=== PATIENT | male | born 1985 ===

== ENCOUNTER 2019-08-24 15:12 | Emergency (ER) | payer BC, OTHER ==
--- NOTE | 2019-08-24 16:11 | EDM.PDOC ---
ED HPI GENERAL MEDICAL PROBLEM - General Chief Complaint: Neuro Symptoms/Deficits Stated Complaint: CONFUSION Time Seen by Provider: 08/24/19 16:10 - History of Present Illness INITIAL COMMENTS - FREE TEXT/NARRATIVE: 33-year-old male presents the emergency room with these episodes of lightheadedness and just not thinking. This is been going on the last day and a half he is had a couple episodes 1 yesterday one today. He has these episodes where he is having hard time processing his thoughts he feels a little lightheaded the world is not spinning around him during these episodes. It is harder for him to concentrate with these episodes and he is just not right. The patient is trying to lose weight and he works out daily. He was using his as needed Flexeril but has been on this for 4 years and he has not had problems with it in the past. Diet is sporadic at times. - Related Data Allergies Allergy/AdvReac Type Severity Reaction Status Date / Time Seasonal Allergy Itching Uncoded 08/24/19 15:25 Home Meds: Home Meds Cyclobenzaprine [Flexeril] 5 mg PO Q8HR PRN 08/24/19 [History] Diclofenac Sodium [Diclofenac Sodium ER] 200 mg PO DAILY 08/24/19 [History] traMADol [Ultram] 50 mg PO Q6H PRN 08/24/19 [History] Past Medical History HEENT History: Reports: Hard of Hearing Cardiovascular History: Reports: High Cholesterol Respiratory History: Reports: Sleep Apnea Gastrointestinal History: Reports: None Genitourinary History: Reports: None Musculoskeletal History: Reports: Back Pain, Chronic Psychiatric History: Reports: None Endocrine/Metabolic History: Reports: Obesity/BMI 30+ Hematologic History: Reports: None Immunologic History: Reports: None Oncologic (Cancer) History: Reports: None Dermatologic History: Reports: None - Infectious Disease History Infectious Disease History: Reports: None - Past Surgical History Neurological Surgical History: Reports: Discectomy, Other (See Below) Other Neurological Surgeries/Procedures: Steroid shots to lower back where discectomy was done. Musculoskeletal Surgical History: Reports: Arthroscopic Procedure, Other (See Below) Other Musculoskeletal Surgeries/Procedures:: Surgery to Repair Torn Right Achilles Tendon Social & Family History - Tobacco Use Smoking Status *Q: Never Smoker - Caffeine Use Caffeine Use: Reports: Energy Drinks Other Caffeine Use: Preworkout - Recreational Drug Use Recreational Drug Use: No ED ROS GENERAL - Review of Systems Review Of Systems: See Below Constitutional: Reports: No Symptoms HEENT: Reports: No Symptoms Respiratory: Reports: No Symptoms Cardiovascular: Reports: No Symptoms Endocrine: Reports: No Symptoms GI/Abdominal: Reports: No Symptoms : Reports: No Symptoms Musculoskeletal: Reports: Back Pain, Muscle Pain Neurological: Reports: Confusion (Confusion with these episodes), Weakness (He has some weakness during these episodes as well) Psychiatric: Reports: No Symptoms Hematologic/Lymphatic: Reports: No Symptoms ED EXAM, GENERAL - Physical Exam Exam: See Below Exam Limited By: No Limitations General Appearance: Alert, No Apparent Distress, Other (He is not symptomatic at the time of his ER visit) Eye Exam: Bilateral Eye: EOMI, Normal Inspection, PERRL Ears: Normal External Exam, Normal Canal, Hearing Grossly Normal, Normal TMs Nose: Normal Inspection, Normal Mucosa, No Blood Throat/Mouth: Normal Inspection, Normal Lips, Normal Teeth, Normal Gums, Normal Oropharynx, Normal Voice, No Airway Compromise Head: Atraumatic, Normocephalic Neck: Normal Inspection, Supple, Non-Tender, Full Range of Motion. No: Lymphadenopathy (L), Lymphadenopathy (R) Respiratory/Chest: No Respiratory Distress, Lungs Clear, Normal Breath Sounds Cardiovascular: Regular Rate, Rhythm, No Edema, No Murmur GI/Abdominal: Normal Bowel Sounds, Soft, Non-Tender Back Exam: Normal Inspection. No: CVA Tenderness (L), CVA Tenderness (R) Extremities: Normal Inspection, Normal Range of Motion, Non-Tender, No Pedal Edema Neurological: Alert, Oriented, Normal Cognition, Other (Cranial nerves II through XII grossly intact all muscle groups the upper and lower extremities are equal and appropriate bilaterally deep tendon reflexes are equal and appropriate at the brachioradialis and patella tendons bilaterally. Cerebellar testing is entirely within normal limits) Lymphatic: No Adenopathy EKG INTERPRETATION EKG Date: 08/24/19 Rhythm: NSR Gould: Normal P-Wave: Present QRS: Normal ST-T: Normal QT: Normal Comparison: NA - No Prior EKG EKG Interpretation Comments: Normal EKG Course - Vital Signs Last Recorded V/S: Last Vital Signs Temp 36.8 C 08/24/19 15:21 Pulse 102 H 08/24/19 15:21 Resp 16 08/24/19 15:21 BP 166/114 H 08/24/19 15:21 Pulse Ox 98 08/24/19 15:21 - Orders/Labs/Meds Orders: Active Orders 24 hr Category Date Time Status EKG 12 Lead [EKG Documentation Completion] [RC] STAT Care 08/24/19 16:28 Active Labs: Laboratory Tests 08/24/19 08/24/19 08/24/19 Range/Units 16:28 16:28 16:45 WBC 6.90 (4.23-9.07) K/mm3 RBC 5.43 (4.63-6.08) M/mm3 Hgb 15.8 (13.7-17.5) gm/dl Hct 46.5 (40.1-51.0) % MCV 85.6 (79.0-92.2) fl MCH 29.1 (25.7-32.2) pg MCHC 34.0 (32.2-35.5) g/dl RDW Std Deviation 41.5 (35.1-43.9) fL Plt Count 211 (163-337) K/mm3 MPV 9.9 (9.4-12.3) fl Neut % (Auto) 51.3 (34.0-67.9) % Lymph % (Auto) 36.2 (21.8-53.1) % [place] % (Auto) 9.0 (5.3-12.2) % Eos % (Auto) 2.6 (0.8-7.0) Baso % (Auto) 0.6 (0.1-1.2) % Neut # (Auto) 3.54 (1.78-5.38) K/mm3 Lymph # (Auto) 2.50 (1.32-3.57) K/mm3 [place] # (Auto) 0.62 (0.30-0.82) K/mm3 Eos # (Auto) 0.18 (0.04-0.54) K/mm3 Baso # (Auto) 0.04 (0.01-0.08) K/mm3 Sodium (136-145) mEq/L Potassium (3.5-5.1) mEq/L Chloride (98-107) mEq/L Carbon Dioxide (21-32) mEq/L Anion Gap (5-15) BUN (7-18) mg/dL Creatinine (0.7-1.3) mg/dL Est Cr Clr Drug Dosing mL/min Estimated GFR (MDRD) (>60) mL/min BUN/Creatinine Ratio (14-18) Glucose (74-106) mg/dL Calcium (8.5-10.1) mg/dL Total Bilirubin (0.2-1.0) mg/dL AST (15-37) U/L ALT (16-63) U/L Alkaline Phosphatase (46-116) U/L Total Protein (6.4-8.2) g/dl Albumin (3.4-5.0) g/dl Globulin gm/dL Albumin/Globulin Ratio (1-2) TSH 3rd Generation (0.358-3.74) uIU/mL Urine Color Yellow (Yellow) Urine Appearance Cloudy H (Clear) Urine pH 7.5 (5.0-8.0) Ur Specific Dietrich 1.025 (1.005-1.030) Urine Protein Negative (Negative) Urine Glucose (UA) Negative (Negative) Urine Ketones Negative (Negative) Urine Occult Blood Negative (Negative) Urine Nitrite Negative (Negative) Urine Bilirubin Negative (Negative) Urine Urobilinogen 0.2 (0.2-1.0) Ur Leukocyte Esterase Negative (Negative) Urine Opiates Screen Negative (ZRXUHG=178) Ur Buprenorphine Scrn Negative (CUTOFF=10) Ur Oxycodone Screen Negative (NDN8XP=618) Urine Methadone Screen Negative (MIL3QA=546) Ur Propoxyphene Screen Negative (HUKKYS=979) Ur Barbiturates Screen Negative (CTUJWT=130) Ur Tricyclics Screen Negative (IMRCQV=629) Ur Phencyclidine Scrn Negative (CUTOFF=25) Ur Amphetamine Screen Negative (CMJBQX=368) U Methamphetamines Scrn Negative (IMLNPW=693) U Benzodiazepines Scrn Negative (CKRJFY=594) U Cocaine Metab Screen Negative (WONOSD=991) U Marijuana (THC) Screen Negative (CUTOFF=50) Ethyl Alcohol (0.00) gm% 08/24/19 Range/Units 16:45 WBC (4.23-9.07) K/mm3 RBC (4.63-6.08) M/mm3 Hgb (13.7-17.5) gm/dl Hct (40.1-51.0) % MCV (79.0-92.2) fl MCH (25.7-32.2) pg MCHC (32.2-35.5) g/dl RDW Std Deviation (35.1-43.9) fL Plt Count (163-337) K/mm3 MPV (9.4-12.3) fl Neut % (Auto) (34.0-67.9) % Lymph % (Auto) (21.8-53.1) % [place] % (Auto) (5.3-12.2) % Eos % (Auto) (0.8-7.0) Baso % (Auto) (0.1-1.2) % Neut # (Auto) (1.78-5.38) K/mm3 Lymph # (Auto) (1.32-3.57) K/mm3 [place] # (Auto) (0.30-0.82) K/mm3 Eos # (Auto) (0.04-0.54) K/mm3 Baso # (Auto) (0.01-0.08) K/mm3 Sodium 140 (136-145) mEq/L Potassium 4.2 (3.5-5.1) mEq/L Chloride 104 (98-107) mEq/L Carbon Dioxide 26 (21-32) mEq/L Anion Gap 14.2 (5-15) BUN 16 (7-18) mg/dL Creatinine 1.3 (0.7-1.3) mg/dL Est Cr Clr Drug Dosing 93.09 mL/min Estimated GFR (MDRD) > 60 (>60) mL/min BUN/Creatinine Ratio 12.3 L (14-18) Glucose 104 (74-106) mg/dL Calcium 9.2 (8.5-10.1) mg/dL Total Bilirubin 0.4 (0.2-1.0) mg/dL AST 37 (15-37) U/L ALT 62 (16-63) U/L Alkaline Phosphatase 77 (46-116) U/L Total Protein 7.5 (6.4-8.2) g/dl Albumin 4.0 (3.4-5.0) g/dl Globulin 3.5 gm/dL Albumin/Globulin Ratio 1.1 (1-2) TSH 3rd Generation 1.725 (0.358-3.74) uIU/mL Urine Color (Yellow) Urine Appearance (Clear) Urine pH (5.0-8.0) Ur Specific Dietrich (1.005-1.030) Urine Protein (Negative) Urine Glucose (UA) (Negative) Urine Ketones (Negative) Urine Occult Blood (Negative) Urine Nitrite (Negative) Urine Bilirubin (Negative) Urine Urobilinogen (0.2-1.0) Ur Leukocyte Esterase (Negative) Urine Opiates Screen (AZLWAT=278) Ur Buprenorphine Scrn (CUTOFF=10) Ur Oxycodone Screen (RZS1MT=568) Urine Methadone Screen (WND2IF=239) Ur Propoxyphene Screen (DQQHGQ=398) Ur Barbiturates Screen (LEUOLJ=058) Ur Tricyclics Screen (ZWSLNV=266) Ur Phencyclidine Scrn (CUTOFF=25) Ur Amphetamine Screen (ODDUKU=941) U Methamphetamines Scrn (SFOGCJ=515) U Benzodiazepines Scrn (YMAEPC=600) U Cocaine Metab Screen (FBVUCN=494) U Marijuana (THC) Screen (CUTOFF=50) Ethyl Alcohol 0.00 (0.00) gm% - Re-Assessments/Exams Free Text/Narrative Re-Assessment/Exam: 08/24/19 18:12 He has a normal neurologic examination thinking about the etiologies this does not really represent a presyncopal situation however I cannot exclude this I am concerned that he is getting hypoglycemic at times. The Flexeril could be potential culprit but he is tolerated this fairly well over the years and he has not used it in a couple of days and he had an episode yesterday and another 1 again today. At this point I think the most likely explanation is hypoglycemic episodes had a long discussion with the patient of how to avoid these and he will work on this. When discussing this I discovered the patient' s son has Elgwy-Ovdzhzhmf-Rnoma syndrome. We will check a 48-hour Holter on this gentleman. He will follow-up with his primary next week. Departure - Departure Time of Disposition: 18:13 Disposition: Home, Self-Care 01 Clinical Impression: Multiple episodes of hypoglycemia, Episode of transient neurologic symptoms - Discharge Information Instructions: Hypoglycemia Referrals: Alejandra Champagne NP [Primary Care Provider] - Forms: ED Department Discharge Additional Instructions: Return to the emergency room with any questions problems or worsening symptoms. Follow-up with your regular provider next week if possible. Work on hypoglycemic causes of these episodes and see if this improves it. Return the Holter monitor as instructed. Stop the energy drinks!!! Sepsis Event Note - Evaluation Sepsis Screening Result: No Definite Risk - Focused Exam Vital Signs: Vital Signs Temp Pulse Resp BP Pulse Ox 08/24/19 15:21 36.8 C 102 H 16 166/114 H 98 Date Exam was Performed: 08/24/19 Time Exam was Performed: 18:19 - My Orders Last 24 Hours: My Active Orders 08/24/19 16:28 EKG 12 Lead [EKG Documentation Completion] [RC] STAT - Assessment/Plan Last 24 Hours: My Active Orders 08/24/19 16:28 EKG 12 Lead [EKG Documentation Completion] [RC] STAT
== END 2019-08-24 18:45 | disposition home or self-care (01) ==
LOC: JD.ED 15:12
DX: E16.2 Hypoglycemia, unspecified (principal); R29.818 Other symptoms and signs involving the nervous system; Z91.048 Other nonmedicinal substance allergy status
CPT/HCPCS: 36415; 80053; 80306; 80307; 81003; 84443; 85025; 93005; 93010; 93225; 93226; 99283; 99285-25